=== PATIENT | male | born 1975 ===

== ENCOUNTER 2022-02-02 12:44 | Outpatient (CLI) | payer BC, SELFPAY ==
--- NOTE | ~2022-02-02 | US_ITS ---
EXAMINATION: US soft tissue groin LT DATE: 02/02/2022 12:59 INDICATION: Left groin lump. TECHNIQUE: Multiple grayscale and Doppler ultrasound images of the left groin were obtained. COMPARISON: None FINDINGS: In the subcutaneous left inguinal region, there is a 1.1 x 0.6 x 0.9 cm hypoechoic mass. IMPRESSION: 1. Small subcutaneous mass in left inguinal region, most likely inflammation or a normal-sized lymph node. Reviewed, dictated and finalized at location B.
== END 2022-02-02 12:45 ==
PROVIDERS: PCP Family Medicine; Visit Provider Family Medicine
DX: R19.09 Other intra-abdominal and pelvic swelling, mass and lump (principal)
CPT/HCPCS: 76882